=== PATIENT | female | born 1945 | race Native Hawaiian/Other Pacific Islander ===

== ENCOUNTER 2016-05-05 10:01 | Emergency (ER) | payer OTHER ==
[2016-05-05] MEDS ORDERED: IOPAMIDOL 300 (61%) 150 ML VIAL IV ONE (10:02)
[2016-05-05 10:58] LABS: ABSOLUTE NEUTROPHIL COUNT 3.2 K/mm3 (1.8-7.7); BASO % 0.5 % (0.2-1.0); EOS # 0.1 (0.0-0.5); EOS % 1.3 % (0.9-2.9); HEMATOCRIT 44.4 % (37.0-47.0); IMM NEUT% 0.1 % (0-1); LYMPH % 51.9 % (15-45); MEAN CELL VOLUME 94.5 fl (81.0-99.0); MEAN CORPUSCULAR HEMOGLOBIN 31.9 pg (27.0-31.0); MEAN CORPUSCULAR HGB CONC 33.8 g/dl (33.0-37.0); MEAN PLATELET VOLUME 11.2 fl (7.4-10.4); MONO # 0.4 (0.0-0.8); MONO % 5.3 % (4-12); NEUT % 40.9 % (43-75); PLATELET COUNT 236 K/mm3 (130-400); RED CELL DISTRIBUTION WIDTH 11.8 % (11.5-14.5)
[2016-05-05 11:01] LABS: URINE BILIRUBIN NEGATIVE (NEGATIVE); URINE BLOOD 2+ (NEGATIVE); URINE GLUCOSE (UA) NEGATIVE (NEGATIVE); URINE LEUKOCYTE ESTERASE 1+ (NEGATIVE); URINE NITRITE NEGATIVE (NEGATIVE); URINE PROTEIN NEGATIVE (NEGATIVE); URINE UROBILINOGEN NORMAL (0-1 mg/dl)
[2016-05-05 11:06] LABS: URINE APPEARANCE CLEAR; URINE COLOR YELLOW
[2016-05-05 11:11] LABS: URINE BACTERIA 1+
[2016-05-05 11:42] LABS: ALB/GLOB RATIO 1.2 (>1.0); ALBUMIN 4.2 gm/dL (3.5-5.7); CALCIUM 9.4 mg/dL (8.6-10.3)
--- NOTE | 2016-05-05 11:48 | CT ---
CT ABDOMEN AND PELVIS WITH CONTRAST HISTORY: Upper abdominal pain. TECHNIQUE: Following intravenous administration of 125 mL Isovue-300, contiguous axial images were acquired from the lung bases to the ischial tuberosities. Oral contrast was not administered. COMPARISON: 02/02/2004 FINDINGS: LUNG BASES: No gross airspace consolidation or pleural effusion. Note is made of a moderate hiatal hernia with paraesophageal component. No associated wall thickening. LIVER: Features of diffuse fatty infiltration. No dominant focal lesion. SPLEEN: No focal lesion. PANCREAS: No focal lesion. ADRENAL GLANDS: No mass effect. KIDNEYS: Small cysts on the left, measuring up to 6 mm in size. No collecting system dilatation or dominant solid lesion. GALLBLADDER: Surgically absent. No gross extrahepatic biliary dilatation. BOWEL: Decompression of the colon. Minor changes of colonic diverticulosis without diverticulitis. Normal appendix. No small bowel dilatation. Minor fluid within the proximal colon may indicate diarrhea. PELVIC ORGANS: Status post hysterectomy. No adnexal mass effect. Low lying appearance of the pelvic floor, with possible rectocele formation. FREE FLUID: No gross free fluid identified. ABDOMINOPELVIC LYMPH NODES: No abnormally enlarged lymph nodes identified. ABDOMINAL AORTA: Minor atherosclerotic calcification without aneurysmal dilatation. OSSEOUS STRUCTURES: Minor thoracic disc degeneration. No destructive lesions. IMPRESSION: 1. Moderate hiatal/paraesophageal hernia without associated wall thickening. 2. Nonobstructive, noninflammatory appearance of bowel with normal appendix. Limited assessment of the colon due to decompression may reflect diarrhea. 3. Fatty infiltration of liver. 4. Normal appearance of the pancreas. 5. Minor left renal cyst formation. 6. Status post hysterectomy without pelvic mass effect or free fluid. 7. Possible rectocele formation. 8. Thoracic disc degeneration. Results were electronically transmitted to the electronic medical record at 05/05/2016 at 1144 hours.
[2016-05-05] MEDS ORDERED: FAMOTIDINE 10 MG/ML 2ML VIAL ONE (13:35)
[2016-05-05] MEDS ORDERED: MAALOX/LIDO2%VISC/SIMETHICONE 40 ML BOT ONE (13:35)
== END 2016-05-05 14:10 | disposition home or self-care (01) ==
LOC: ED 10:01
DX: R10.13 Epigastric pain (principal); R11.0 Nausea; I10 Essential (primary) hypertension
CPT/HCPCS: 83690; 85025; 87086; 80053; 81001; 74177; 99284 ×2; 96374; A9270; Q9967